=== PATIENT | male | born 1940 | race Hispanic/Latino ===

== ENCOUNTER 2017-07-09 10:44 | Emergency (ER) | payer MEDICARE, BC ==
[2017-07-09 10:56] VITALS: TEMP 98.2; BMI 23.7
[2017-07-09] MEDS ORDERED: TDAP Vaccine 0.5 mL Syr IM ONE (11:06)
--- NOTE | 2017-07-09 11:23 | ED PDOC ---
Arrival/HPI - General Chief Complaint: Trauma Time Seen by Provider: 07/09/17 11:05 Historian: Patient - History of Present Illness Narrative History of Present Illness (Text): 07/09/17 11:12 77-year-old male presents today with head injury and facial laceration status post mechanical fall. Patient states he was walking in his right foot tripped over a cement parking block and he fell forward hitting his face on the ground sustaining laceration. He denies loss of consciousness. He is complaining of headache and facial pain. He denies dizziness or weakness. Time/Duration: Prior to Arrival Past Medical History - Provider Review Nursing Documentation Reviewed: Yes - Travel History Have you recently traveled outside [place] w/in the past 3 mons?: No - Infectious Disease Hx of Infectious Diseases: None - Tetanus Immunization Tetanus Immunization: Unknown - Cardiac Hx Hypertension: Yes - Psychiatric Hx Substance Use: No - Anesthesia Hx Anesthesia: No Hx Anesthesia Reactions: No Hx Malignant Hyperthermia: No Family/Social History - Physician Review Nursing Documentation Reviewed: Yes Family/Social History: Unknown Family HX Smoking Status: Never Smoked Hx Alcohol Use: Yes Frequency of alcohol use: Daily Hx Substance Use: No Allergies/Home Meds Allergies/Adverse Reactions: Allergies No Known Allergies Allergy (Verified 07/09/17 10:52) Home Medications: Home Meds Medication Instructions Recorded Confirmed Bisoprolol/HCTZ [Ziac 2.5-6.25 mg] 1 tab PO DAILY 07/09/17 07/09/17 Lisinopril/Hydrochlorothiazide 1 tab PO DAILY 07/09/17 07/09/17 [Zestoretic 10-12.5 mg Tablet] Review of Systems - Review of Systems Constitutional: absent: Fatigue, Fevers ENT: Epistaxis. absent: Sore Throat, Sinus Congestion Respiratory: absent: SOB, Cough Cardiovascular: absent: Chest Pain, Palpitations Gastrointestinal: absent: Abdominal Pain, Nausea, Vomiting Genitourinary Male: absent: Dysuria Musculoskeletal: Arthralgias (b/l knee pain). absent: Back Pain, Neck Pain Skin: Laceration (right eyebrow), Other (abrasions, both knees) Neurological: Headache. absent: Dizziness Psychiatric: absent: Anxiety, Depression Physical Exam Vital Signs Reviewed: Yes Vital Signs Temp Pulse Resp BP Pulse Ox 07/09/17 13:53 84 16 140/109 H 98 07/09/17 11:06 86 18 154/88 H 98 07/09/17 10:46 98.2 F 95 H 19 97 Temperature: Afebrile Blood Pressure: Normal Pulse: Regular Respiratory Rate: Normal Appearance: Positive for: Well-Appearing, Non-Toxic, Comfortable Pain Distress: None Mental Status: Positive for: Alert and Oriented X 3 - Systems Exam Head: Present: Tenderness (+ ttp over righ superior orbit. ), Laceration (there is a 4cm laceration to the right eyebrow extending between both eyebrows, no active bleeding; no step offs or crepitus. ) Pupils: Present: PERRL Extroacular Muscles: Present: EOMI Conjunctiva: Present: Normal Ears: Present: Normal Mouth: Present: Moist Mucous Membranes Pharnyx: Present: Normal Nose (External): Present: Abrasion (2cm abrasion noted to bridge of nose) Nose (Internal): No: No Active Bleeding, Septal Hematoma (right sided dried blood; no active bleeding; ) Neck: Present: Normal Range of Motion. No: MIDLINE TENDERNESS, Paraspinal Tenderness Respiratory/Chest: Present: Clear to Auscultation. No: Tender to Palpation Cardiovascular: Present: Regular Rate and Rhythm Abdomen: No: Tenderness, Distention, Rebound, Guarding Back: Present: Normal Inspection. No: Midline Tenderness, Paraspinal Tenderness Upper Extremity: Present: Normal Inspection, Normal ROM. No: Tenderness (no wrist tenderness, full rom of wrists. no abrasions/lacerations. ) Lower Extremity: Present: Normal ROM, Tenderness, Neurovascularly Intact, Other (+ superficial abrasions noted to both knees anteriorly. ) Neurological: Present: GCS=15, Speech Normal Skin: Present: Warm, Dry Psychiatric: Present: Alert, Oriented x 3 Medical Decision Making ED Course and Treatment: 07/09/17 11:42 77-year-old male presents today with facial lacerations status post mechanical fall. Complaining of headache and facial pain Tetanus updated Tylenol given for pain Patient is nontoxic well appearing in no distress. Vital signs are stable. Wound irrigated well with high pressure irrigation xrays knees bilaterally; no fracture CT head:FINDINGS: HEMORRHAGE: No intracranial hemorrhage. BRAIN: Diffuse atrophy with prominence of the ventricles and sulci noted. No mass effect or edema. Scattered periventricular and subcortical white matter hypodensities, which are nonspecific, but often seen with chronic microvascular ischemic disease. Please note that MRI with diffusion imaging is more sensitive in the detection of acute ischemic event. VENTRICLES: No hydrocephalus. CALVARIUM: Unremarkable. PARANASAL SINUSES: Unremarkable as visualized. No significant inflammatory changes. MASTOID AIR CELLS: Unremarkable as visualized. No inflammatory changes. OTHER FINDINGS: Facial soft tissue swelling/ hematoma. IMPRESSION: Facial soft tissue swelling/ hematoma. Generalized atrophy. Mild nonspecific white matter changes. CT facial bones:Findings: Right facial soft tissue swelling/hematoma. The facial bones appear unremarkable intact without acute displaced fracture. The orbits appear unremarkable. The temporomandibular joints are located. The mastoid air cells appear clear. No acute intracranial pathology appreciated on included views. The paranasal sinuses appear clear without air-fluid levels. Osseous demineralization. Degenerative changes. Lucency within the C5 vertebral body measures approximately 7 mm. Impression: Right facial soft tissue swelling/hematoma. Additional findings as above. Laceration repair: 6 sutures placed Bacitracin and dressing applied Patient was advised to keep the wound clean and dry, apply bacitracin twice daily. Advised to return immediately if signs of infection develop or return if any other concerning symptoms develop. pt was advised to return in 5 days for suture removal. advised patient and his daughter of incidental finding in the cervical spine. advised them of lucency in C5 of the neck. stressed importance of f/u with PMD for further evaluation of this finding. Impression: Laceration, face, head injury, epistaxis Tylenol every 4 hours as needed for pain Keep the wound clean and dry, apply bacitracin twice daily Return in 5 days for suture removal Return immediately if signs of infection develop: High fevers, increasing pain, redness, swelling, purulent discharge Followup with primary care physician within the next [address]; lucency in C5 vertebral body. Return immediately if signs of head injury develop: headaches, dizziness, weakness, changes in behavior or mental status. Return if any other concerning symptoms develop - RAD Interpretation Radiology Orders: 07/09/17 11:05 HEAD W/O CONTRAST [CT] Stat MAXILLOFACIAL W/O CONTRAST [CT] Stat 07/09/17 11:15 KNEES BILATERAL [RAD] Stat - Medication Orders Current Medication Orders: Discontinued Medications Acetaminophen (Tylenol 325mg Tab) 650 mg PO STAT STA Stop: 07/09/17 11:07 Last Admin: 07/09/17 11:14 Dose: 650 mg Lidocaine HCl (Lidocaine 1% (20ml)) Confirm Administered Dose 20 ml .ROUTE .STK- MED ONE Stop: 07/09/17 12:30 Tetanus/Reduced Diphtheria/Acell Pertussis (Boostrix Vaccine Inj) 0.5 ml IM .ONCE ONE Stop: 07/09/17 11:07 Last Admin: 07/09/17 11:15 Dose: 0.5 ml Procedure: Wound Repair - Procedure Procedure: Wound Repair: laceration - Performed by Performed by: Mid-level Provider - Indications Indication(s):: Laceration - Location Shape:: Linear Dimensions Length cm: 4cm Depth:: Epidermis - Anesthetic Technique Anesthetic Technique: Topical Local/Regional Anesthetic:: Lidocaine 1% (2cc) - Debris Debris:: None - Irrigated Irrigated with ml of normal saline: copious amounts of NS using high pressure irrigation - Complexity Complexity:: Simple (one layer) - Wound repair method Sutures:: # (6), Size (6.0), Type (prolene), Technique (interrupted) - Complications Complications: none - Patient tolerated procedure Patient Tolerated Procedure:: Well Disposition/Present on Arrival - Present on Arrival Any Indicators Present on Arrival: No History of DVT/PE: No History of Uncontrolled Diabetes: No Urinary Catheter: No History of Decub. Ulcer: No History Surgical Site Infection Following: None - Disposition Have Diagnosis and Disposition been Completed?: Yes Diagnosis: Head injury, Facial laceration, Contusion of face, Abrasion of both knees, Abnormal CT scan Disposition: HOME/ ROUTINE Disposition Time: 13:08 Patient Plan: Discharge Condition: GOOD Discharge Instructions (ExitCare): Care For Your Stitches (ED), Head Injury (ED ), Abrasion (ED), Knee Pain (ED), Facial Laceration (ED) Additional Instructions: Tylenol every 4 hours as needed for pain Keep the wound clean and dry, apply bacitracin twice daily Return in 5 days for suture removal Return immediately if signs of infection develop: High fevers, increasing pain, redness, swelling, purulent discharge Followup with primary care physician within the next [address]; lucency in C5 vertebral body. Return immediately if signs of head injury develop: headaches, dizziness, weakness, changes in behavior or mental status. Return if any other concerning symptoms develop Prescriptions: Bacitracin OINT 1 applic TP BID #1 tube Referrals: Dedousis,Charlie, MD [Staff Provider] - Follow up with primary Km Grier DO [Staff Provider] - Follow up with primary Forms: [employer] (Yakut)
[2017-07-09 11:36] VITALS: O2SAT 98
--- NOTE | 2017-07-09 11:50 | CT ---
PROCEDURE: CT HEAD WITHOUT CONTRAST. HISTORY: headache COMPARISON: None available. TECHNIQUE: Axial computed tomography images were obtained through the head/brain without intravenous contrast. Radiation dose: Total exam DLP = 774.23 mGy-cm. This CT exam was performed using one or more of the following dose reduction techniques: Automated exposure control, adjustment of the mA and/or kV according to patient size, and/or use of iterative reconstruction technique. FINDINGS: HEMORRHAGE: No intracranial hemorrhage. BRAIN: Diffuse atrophy with prominence of the ventricles and sulci noted. No mass effect or edema. Scattered periventricular and subcortical white matter hypodensities, which are nonspecific, but often seen with chronic microvascular ischemic disease. Please note that MRI with diffusion imaging is more sensitive in the detection of acute ischemic event. VENTRICLES: No hydrocephalus. CALVARIUM: Unremarkable. PARANASAL SINUSES: Unremarkable as visualized. No significant inflammatory changes. MASTOID AIR CELLS: Unremarkable as visualized. No inflammatory changes. OTHER FINDINGS: Facial soft tissue swelling/ hematoma. IMPRESSION: Facial soft tissue swelling/ hematoma. Generalized atrophy. Mild nonspecific white matter changes.
--- NOTE | 2017-07-09 12:20 | CT ---
CT maxillofacial bones without IV contrast Indication: Fall, right facial injury Comparison: Noncontrast head CT performed the same day. Technique: Axial computed tomography images were obtained of the maxillofacial bones without the use of intravenous contrast. Coronal and sagittal reformatted images were generated and reviewed. This CT exam was performed using 1 or more of the falling dose reduction techniques: Automated exposure control, adjustment of the MAA and/or kV according to patient size, and/or use of iterative reconstruction technique. Radiation dose: Total exam DLP = 872.39 mGy-cm. Findings: Right facial soft tissue swelling/hematoma. The facial bones appear unremarkable intact without acute displaced fracture. The orbits appear unremarkable. The temporomandibular joints are located. The mastoid air cells appear clear. No acute intracranial pathology appreciated on included views. The paranasal sinuses appear clear without air-fluid levels. Osseous demineralization. Degenerative changes. Lucency within the C5 vertebral body measures approximately 7 mm. Impression: Right facial soft tissue swelling/hematoma. Additional findings as above.
[2017-07-09] MEDS ORDERED: Lidocaine 1% Inj (20ml) ONE (12:29)
--- NOTE | 2017-07-09 12:34 | RAD ---
PROCEDURE: Bilateral Knee Radiographs. HISTORY: Bilateral knee pain status post fall COMPARISON: None available. FINDINGS: BONES: Right Knee: No acute displaced fracture. Osseous demineralization limits evaluation for acute fracture lines. Degenerative changes including tenting of the intercondylar notch. Left Knee: No acute displaced fracture. Osseous demineralization limits evaluation for acute fracture lines. Degenerative changes including tenting of the intercondylar notch. JOINTS: Right Knee: No dislocation. Tricompartmental narrowing. Left knee: No dislocation. Tricompartmental narrowing. SOFT TISSUES: Right Knee: Unremarkable. No evidence of radiopaque foreign body. Left Knee: Unremarkable. No evidence of radiopaque foreign body. JOINT EFFUSION: Right Knee: No significant joint effusion identified. Left Knee: No significant joint effusion identified. OTHER FINDINGS: None. IMPRESSION: Osseous demineralization. Degenerative changes. No acute displaced fracture, dislocation, or significant joint effusion identified. If symptoms persist or if there is continued clinical concern, x-ray follow-up in 7-10 days should be considered.
[2017-07-09 13:54] VITALS: BP 140/109; PULSE 84; RESP 16
== END 2017-07-09 13:56 | disposition home or self-care (01) ==
LOC: ED 10:44
DX: S09.90XA Unspecified injury of head, initial encounter (principal); S01.111A Laceration without foreign body of right eyelid and periocular area, initial encounter; S80.211A Abrasion, right knee, initial encounter; S80.212A Abrasion, left knee, initial encounter; W01.0XXA Fall on same level from slipping, tripping and stumbling without subsequent striking against object, initial encounter; Y93.01 Activity, walking, marching and hiking; R94.8 Abnormal results of function studies of other organs and systems; Z23 Encounter for immunization